=== PATIENT | male | born 1945 | race Hispanic/Latino ===

== ENCOUNTER 2018-01-19 08:40 | Day surgery (SDC) | payer OTHER, MEDICARE ==
[2018-01-18 10:40] LABS: BASOPHILS % (AUTO) 0.5 % (0.0-5.0); EOSINOPHILS % (AUTO) 1.1 % (0.0-8.0); HEMATOCRIT 45.6 % (42-54); LYMPHOCYTES % (AUTO) 17.6 % (21.0-51.0); MEAN CORPUSCULAR HEMOGLOBIN 28.3 pg (27.0-33.0); MEAN CORPUSCULAR HGB CONC 33.2 g/dL (32.0-36.0); MEAN CORPUSCULAR VOLUME 85.2 fL (79-99); MONOCYTES % (AUTO) 6.5 % (3.0-13.0); NEUTROPHILS % (AUTO) 74.3 % (40.0-77.0); PLATELET COUNT (AUTO) 186 K/uL (130-400); RED BLOOD CELL COUNT(AUTO) 5.35 MIL/uL (4.50-6.20); RED CELL DISTRIBUTION WIDTH 13.6 % (11.0-15.5)
[2018-01-18 10:47] VITALS: BP 132/71
[2018-01-18 11:13] LABS: CREATININE 1.3 mg/dL (0.5-1.5); POTASSIUM 4.8 mmol/L (3.5-5.1)
[2018-01-19] VITALS (13 sets, daily range): BP systolic 130–183; BP diastolic 62–84
[~2018-01-19] VITALS: Ht 188 cm; Wt 102.5 kg
[~2018-01-19 08:40] MED LIST: ASPI-555 PO; METF-444 PO
[2018-01-19] MEDS: LEVOFLOXACIN 500 MG/D5W 100 ML 100 ML IV SCH ×2 (10:30→12:15)
[2018-01-19] MEDS ORDERED: SODIUM CHLORIDE 0.9% 1000ML 1,000 ML IV ONE (10:41)
[2018-01-19] MEDS ORDERED: GLIM4TAB3 PO (11:02)
[2018-01-19] MEDS ORDERED: METO100T14 PO (11:03)
[2018-01-19] MEDS ORDERED: ONDANSETRON HCL 4 MG/2 ML VIAL ONE (12:14)
[2018-01-19] MEDS ORDERED: SUCCINYLCHOLINE CHLORIDE 20 MG/ML 10 ML VIAL ONE (12:14)
[2018-01-19] MEDS ORDERED: LIDOCAINE PF 2% 5ML ABBOJECT ONE (12:14)
[2018-01-19] MEDS ORDERED: PROPOFOL 10 MG/ML 20ML VIAL IV ONE ×2 (12:14→13:29)
[2018-01-19] MEDS ORDERED: FENTANYL CITRATE PF 50 MCG/1 ML 2ML VIAL ONE ×3 (12:15→14:01)
[2018-01-19] MEDS ORDERED: EPHEDRINE SULFATE 50 MG/ML AMPULE ONE (12:33)
[2018-01-19] MEDS ORDERED: DEXAMETHASONE SOD PHOSPHATE 10MG/ML 1ML VIAL ONE (13:41)
[2018-01-19] MEDS ORDERED: PHENAZOPYRIDINE HCL 200 MG TABLET ONE (15:37)
== END 2018-01-19 17:00 | disposition home or self-care (01) ==
LOC: DAH 08:40 → SUH 08:40
PROVIDERS: ATTEND Urology
DX: N40.1 Benign prostatic hyperplasia with lower urinary tract symptoms (principal); R33.8 Other retention of urine; N21.0 Calculus in bladder; Z95.1 Presence of aortocoronary bypass graft; E11.9 Type 2 diabetes mellitus without complications; I10 Essential (primary) hypertension; I25.10 Atherosclerotic heart disease of native coronary artery without angina pectoris; Z79.84 Long term (current) use of oral hypoglycemic drugs; Z79.899 Other long term (current) drug therapy; Z88.8 Allergy status to other drugs, medicaments and biological substances; E66.9 Obesity, unspecified; Z86.73 Personal history of transient ischemic attack (TIA), and cerebral infarction without residual deficits
CPT/HCPCS: 36415; 52317; 52648; 80048; 82948 ×2; 85025; 88305; 93005; A4340; A4354; A4358; A4510; A4600; J0330; J1100; J1956; J2001; J2405; J2704 ×2; J3010 ×3; J3490; J7030 ×2

== ENCOUNTER 2018-01-20 09:35 | Emergency (ER) | payer OTHER, MEDICARE ==
[~2018-01-20 09:35] MED LIST changes: +GLIM4TAB3 PO; +METO100T14 PO
[2018-01-20 10:29] LABS: BASOPHILS % (AUTO) 0.5 % (0.0-5.0); EOSINOPHILS % (AUTO) 0.1 % (0.0-8.0); LYMPHOCYTES % (AUTO) 10.7 % (21.0-51.0); MEAN CORPUSCULAR HEMOGLOBIN 28.3 pg (27.0-33.0); MEAN CORPUSCULAR HGB CONC 33.2 g/dL (32.0-36.0); MEAN CORPUSCULAR VOLUME 85.1 fL (79-99); MONOCYTES % (AUTO) 9.7 % (3.0-13.0); PLATELET COUNT (AUTO) 165 K/uL (130-400); RED CELL DISTRIBUTION WIDTH 13.5 % (11.0-15.5); WHITE BLOOD COUNT (AUTO) 12.9 K/uL (4.8-10.8)
[2018-01-20 10:38] LABS: PARTIAL THROMBOPLASTIN TIME 26.1 SEC (26.3-35.5); PROTHROMBIN TIME 10.5 SEC (9.6-11.6)
[2018-01-20 10:40] LABS: CREATININE 1.4 mg/dL (0.5-1.5); POTASSIUM 4.4 mmol/L (3.5-5.1)
[2018-01-20 10:44] LABS: ALBUMIN 3.2 g/dL (3.5-5.0); BILIRUBIN,TOTAL 0.6 mg/dL (0.2-1.0); TOTAL PROTEIN, SERUM 6.9 g/dL (6.0-8.3)
[2018-01-20 10:51] LABS: APPEARANCE,URINE CLOUDY (CLEAR); BILIRUBIN,URINE NEGATIVE (NEGATIVE); GLUCOSE, URINE (UA) >=1000 mg/dL (NEGATIVE); KETONES,URINE 5 mg/dL (NEGATIVE); LEUKOCYTE ESTERASE ,URINE TRACE (NEGATIVE); NITRATE,URINE POSITIVE (NEGATIVE); OCCULT BLOOD,URINE LARGE (NEGATIVE); PH,URINE 5.5 (5.0-8.0); PROTEIN,URINE >=300 (NEGATIVE)
[2018-01-20 11:10] LABS: COLOR,URINE ORANGE (YELLOW)
[2018-01-20 11:14] LABS: BACTERIA,URINE Few /HPF (None Seen); RBC,URINE 51-100 /HPF (0-1); WBC,URINE 26-50 /HPF (0-1)
[2018-01-20 11:15] LABS: YEAST,URINE BUDDING Rare /HPF (None Seen)
[2018-01-20 11:16] LABS: MUCUS,URINE Rare LPF (None Seen); SQUAMOUS EPITHELIAL CELL,UR Few /HPF (0-2)
== END 2018-01-20 12:50 | disposition home or self-care (01) ==
LOC: EDH 09:35
DX: N39.0 Urinary tract infection, site not specified (principal); E11.9 Type 2 diabetes mellitus without complications; I10 Essential (primary) hypertension; N42.9 Disorder of prostate, unspecified; R79.1 Abnormal coagulation profile; Z88.1 Allergy status to other antibiotic agents; Z95.1 Presence of aortocoronary bypass graft; Z98.890 Other specified postprocedural states
CPT/HCPCS: 36415; 80053; 81001; 85025; 85610; 85730

== ENCOUNTER 2021-06-04 08:38 | Day surgery (SDC) | payer MEDICARE ==
[2021-06-02 13:14] LABS: BASOPHILS % (AUTO) 0.4 % (0.0-5.0); EOSINOPHILS % (AUTO) 1.3 % (0.0-8.0); HEMATOCRIT 42.9 % (42-54); LYMPHOCYTES % (AUTO) 17.1 % (21.0-51.0); MEAN CORPUSCULAR HEMOGLOBIN 27.3 pg (27.0-33.0); MEAN CORPUSCULAR HGB CONC 31.5 g/dL (32.0-36.0); MEAN CORPUSCULAR VOLUME 86.7 fL (79-99); MONOCYTES % (AUTO) 6.9 % (3.0-13.0); NEUTROPHILS % (AUTO) 73.9 % (40.0-77.0); PLATELET COUNT (AUTO) 188 K/uL (130-400); RED BLOOD CELL COUNT(AUTO) 4.95 MIL/uL (4.50-6.20); RED CELL DISTRIBUTION WIDTH 13.5 % (11.0-15.5); WHITE BLOOD COUNT (AUTO) 7.4 K/uL (4.8-10.8)
[2021-06-02 13:21] LABS: CREATININE 1.5 mg/dL (0.5-1.5)
[2021-06-04] VITALS (24 sets, daily range): BP systolic 128–190; BP diastolic 69–87
[~2021-06-04] VITALS: Ht 188 cm; Wt 103.0 kg
[~2021-06-04 08:38] MED LIST changes: -ASPI-555 PO; -GLIM4TAB3 PO; +INSU100I24 SQ; -METO100T14 PO; +METO25TA6 PO
[2021-06-04] MEDS ORDERED: 0.9%NACL 1000ML 1,000 ML IV ONE (09:34)
[2021-06-04] MEDS ORDERED: LEVOFLOXACIN 500 MG/D5W 100 ML 100 ML ONE (09:35)
[2021-06-04] MEDS ORDERED: ROCURONIUM 10MG/1ML SYR 10 MG/ML ML ONE (12:08)
[2021-06-04] MEDS ORDERED: LIDOCAINE PF 100MG/5ML (2%) SYRINGE 5ML ONE (12:08)
[2021-06-04] MEDS ORDERED: SUCCINYLCHOLINE 200MG/10ML SYR ONE (12:08)
[2021-06-04] MEDS ORDERED: MIDAZOLAM HCL 1 MG/ML 2ML VIAL ONE (12:08)
[2021-06-04] MEDS ORDERED: PROPOFOL 10 MG/ML 20ML VIAL IV ONE (12:08)
[2021-06-04] MEDS ORDERED: FENTANYL CITRATE PF 50 MCG/1 ML 2ML VIAL ONE (12:08)
[2021-06-04] MEDS ORDERED: GLYCOPYRROLATE 1 MG/5 ML SYRINGE ONE (12:30)
[2021-06-04] MEDS ORDERED: EPHEDRINE SULFATE 50 MG/ML AMPULE ONE (12:47)
[2021-06-04] MEDS ORDERED: OPIUM/BELLADONNA ALKALOIDS 1 EACH SUPP.RECT RC ONE (13:33)
[2021-06-04] MEDS ORDERED: NEOSTIGMINE 5MG/5ML SYR IV ONE (13:55)
[2021-06-04] MEDS ORDERED: MEPERIDINE-PF 25 MG/ML SYG ONE (14:36)
[2021-06-04] MEDS ORDERED: ENALAPRILAT DIHYDRATE 1.25MG/ML 1ML VIAL IV ONE (14:49)
[2021-06-04] MEDS ORDERED: HYDRALAZINE 20MG/ML VIAL ONE (15:40)
[2021-06-04] MEDS ORDERED: PHENAZOPYRIDINE HCL 200 MG TABLET ONE (16:23)
== END 2021-06-04 17:15 | disposition home or self-care (01) ==
LOC: DAH 08:38
PROVIDERS: ATTEND Urology
DX: N40.1 Benign prostatic hyperplasia with lower urinary tract symptoms (principal); Z20.822 Contact with and (suspected) exposure to COVID-19; N21.0 Calculus in bladder; N13.8 Other obstructive and reflux uropathy; R31.0 Gross hematuria; E11.9 Type 2 diabetes mellitus without complications; I25.10 Atherosclerotic heart disease of native coronary artery without angina pectoris; Z86.73 Personal history of transient ischemic attack (TIA), and cerebral infarction without residual deficits; Z79.84 Long term (current) use of oral hypoglycemic drugs; Z79.899 Other long term (current) drug therapy
CPT/HCPCS: 36415 ×2; 52317; 52648; 80048; 82360; 82948 ×3; 85025; 87635; 93005; A4215 ×2; A4221; A4222; A4223; A4340; A4354; A4358; A4510; A4600; A4663; A5113; C1758; C9803; J0330; J0360; J1956; J2001; J2175; J2250; J2704; J2710; J3010; J3490 ×3; J7030; J7120

== ENCOUNTER → 2021-11-25 | Outpatient (CLI) | payer MEDICARE | END | disposition home or self-care (01) | LOC: SHCH 13:59 | PROVIDERS: ATTEND Internal Medicine Cardiovascular Disease | DX: I35.8 Other nonrheumatic aortic valve disorders (principal); I51.7 Cardiomegaly; I25.10 Atherosclerotic heart disease of native coronary artery without angina pectoris; I49.5 Sick sinus syndrome; R42 Dizziness and giddiness; R60.9 Edema, unspecified; E11.51 Type 2 diabetes mellitus with diabetic peripheral angiopathy without gangrene; I73.9 Peripheral vascular disease, unspecified; Z95.1 Presence of aortocoronary bypass graft; Z79.899 Other long term (current) drug therapy | CPT/HCPCS: 93306 ==

== ENCOUNTER 2022-04-01 11:12 | Emergency (ER) | payer MEDICARE ==
[~2022-04-01] VITALS: Ht 190.5 cm; Wt 99.8 kg
[2022-04-01 11:21] VITALS: BP 138/76
[2022-04-01 12:07] LABS: BASOPHILS % (AUTO) 0.3 % (0.0-5.0); EOSINOPHILS % (AUTO) 0.8 % (0.0-8.0); HEMATOCRIT 40.7 % (42-54); LYMPHOCYTES % (AUTO) 11.2 % (21.0-51.0); MEAN CORPUSCULAR HEMOGLOBIN 27.9 pg (27.0-33.0); MEAN CORPUSCULAR HGB CONC 32.9 g/dL (32.0-36.0); MEAN CORPUSCULAR VOLUME 84.8 fL (79-99); MONOCYTES % (AUTO) 9.9 % (3.0-13.0); NEUTROPHILS % (AUTO) 77.6 % (40.0-77.0); PLATELET COUNT (AUTO) 165 K/uL (130-400); RED CELL DISTRIBUTION WIDTH 12.8 % (11.0-15.5); WHITE BLOOD COUNT (AUTO) 8.9 K/uL (4.8-10.8)
[2022-04-01 12:17] LABS: CREATININE 1.5 mg/dL (0.5-1.5); POTASSIUM 4.3 mmol/L (3.5-5.1)
[2022-04-01 12:22] LABS: ALBUMIN 3.1 g/dL (3.5-5.0); TOTAL PROTEIN, SERUM 7.1 g/dL (6.0-8.3)
== END 2022-04-01 18:40 | disposition home or self-care (01) ==
LOC: EDH 11:12
DX: L76.32 Postprocedural hematoma of skin and subcutaneous tissue following other procedure (principal); I11.9 Hypertensive heart disease without heart failure; E11.9 Type 2 diabetes mellitus without complications; Z88.1 Allergy status to other antibiotic agents; Z95.1 Presence of aortocoronary bypass graft; Z98.890 Other specified postprocedural states; Z79.84 Long term (current) use of oral hypoglycemic drugs
CPT/HCPCS: 36415; 80053; 85025